=== PATIENT | female | born 1950 | race Caucasian/White ===

== ENCOUNTER → 2016-11-11 | Outpatient (CLI) | payer BC ==
[~2016-11-11] MED LIST: ASPIRIN 81M81 MG/TA2 PO; CALCIUM CARB W/1 TAB PO; DEXILANT60 MG PO; FLONASE NASAL S16 GM NS; HCTZ 25MG TAB25 MG PO; KLOR-CON M2020 MEQ PO; MIRAPEX 0.0.125 MG/T PO; PREMARIN .3MG0.3 MG PO; PRINIVIL10 MG PO; SAVELLA50 MG PO; SINGULAIR 110 MG/TAB PO; TEMOVATE E TP; ZYRTEC 10MG10 MG PO
== END ==
LOC: MC.RAD 08:00
DX: Z12.31 Encounter for screening mammogram for malignant neoplasm of breast (principal)

== ENCOUNTER → 2018-03-16 | Outpatient (CLI) | payer BC | LOC: MC.RAD 02-07 08:40 | DX: Z12.31 Encounter for screening mammogram for malignant neoplasm of breast (principal) ==

== ENCOUNTER → 2019-05-23 | Outpatient (CLI) | payer MEDICARE, BC | LOC: DIA.ED 12:39 | DX: E11.9 Type 2 diabetes mellitus without complications (principal); E78.5 Hyperlipidemia, unspecified; I10 Essential (primary) hypertension; E66.9 Obesity, unspecified | CPT/HCPCS: G0108 ==

== ENCOUNTER → 2021-01-02 | Outpatient (CLI) | payer MEDICARE, BC | LOC: MC.RAD 13:37 | DX: Z12.31 Encounter for screening mammogram for malignant neoplasm of breast (principal) ==

== ENCOUNTER → 2022-01-07 | Outpatient (CLI) | payer MEDICARE, BC | LOC: MC.RAD 09:22 | DX: Z12.31 Encounter for screening mammogram for malignant neoplasm of breast (principal) ==

== ENCOUNTER 2023-06-21 07:18 | Day surgery (SDC) | payer MEDICARE, BC ==
[~2023-06-21] VITALS: Ht 165.1 cm; Wt 101.1 kg
[~2023-06-21 07:18] MED LIST changes: +COZAAR 50MG50 MG/TAB PO; +ELIQUIS 5MG PO; +LEXAPRO 10MG10 MG PO; +LIPITOR20 MG PO; +LOPRESSOR 550 MG/TAB PO; +MAG64 110 MG-181 ECT RC; +OZEMPIC1 MG/0.71 SQ; +PRIL40 PO; +ZOFRAN ODT4 MG PO
[2023-06-21] MEDS ORDERED: RESTASIS0.05% OP (08:09)
[2023-06-21 08:27] LABS: CALCIUM 9.9 mg/dL (8.4-10.2); CREATININE, serum 1.05 mg/dL (0.57-1.11); POTASSIUM 4.1 mmol/L (3.5-4.5)
[2023-06-21 10:00] VITALS: BP 171/86; PULSE 74; TEMP 97.1
[2023-06-21 10:15] VITALS: BP 159/106; PULSE 63
[2023-06-21 10:30] VITALS: BP 122/100; BP 172/100; PULSE 63
[2023-06-21 11:48] VITALS: BP 202/90; PULSE 52; TEMP 97.7
--- NOTE | 2023-06-21 11:50 | NUR ---
0743 PT AMBULATORY TO BAY 2 W/ STEADY GAIT, BREATHING EVEN AND UNLABORED. PT IS ALERT AND ORIENTED. CONSENTS REVIEWED AND SIGNED BY PT.IV ESTABLISHED.LR INFUSING VIA GRAVITY AT [facility]. CALL LIGHT IN REACH. WARM BLANKET PROVIDED.
--- NOTE | 2023-06-21 13:22 | NUR ---
1000: PATIENT FROM ENDO SUITE TO BAY 2. ALERT AND ORIENTED X4. AMBULATED FROM COT TO RECLINER X2 ASSIST. VSS. REPORT RECEIVED. PATIENT DENIES PAIN OR DISCOMFORT. REQUESTING JUICE AND MUFFIN. RESTING IN RECLINER. CALL LIGHT IN REACH. FRIENDKVNG, AT BEDSIDE. 1015: ALERT AND ORIENTED X4. B/P ELEVATED AT 159/106. TOLERATING JUICE AND MUFFIN. DENIES PAIN OR NAUSEA. RESTING IN RECLINER. CALL LIGHT IN REACH. FRIEND AT BEDSIDE. 1023. DR. TAVERA IN TO SPEAK WITH REMY[facility] AT THIS TIME. DR. TAVERA NOTIFIED OF PATIENT PREVIOUS B/P. 1030: ALERT AND ORIENTED X4. CONTINUES TO TOLERATE JUICE AND MUFFIN. DENIES PAIN OR NAUSEA. B/P 172/100. PATRICK CHANG CRNA NOTIFIED AND STATED OKAY TO DISCHARGE. RESTING IN RECLINER. CALL LIGHT IN REACH. 1035: DISCHARGE EDUCATION COMPLETED AT THIS TIME. PATIENT ENCOURAGED TO FOLLOW-UP WITH PCP REGARDING B/P. PATIENT STATED UNDERSTANDING. DISCHARGE PAPERWORK GIVEN TO PATIENT. IV DC'D AT THIS TIME. PATIENT DENIES ASSISTANCE DRESSING. 1050: PATIENT OFF UNIT AT THIS TIME PER WHEELCHAIR. PATIENT DISCHARGED TO HOME WITH FRIEND PER PERSONAL VEHICLE.
== END 2023-06-21 10:50 | disposition home or self-care (01) ==
LOC: SDCO 07:18
PROVIDERS: Nurse Anesthetist, Certified Registered
DX: D12.5 Benign neoplasm of sigmoid colon (principal); D12.2 Benign neoplasm of ascending colon; D12.4 Benign neoplasm of descending colon; K57.30 Diverticulosis of large intestine without perforation or abscess without bleeding; K64.0 First degree hemorrhoids; K29.30 Chronic superficial gastritis without bleeding; G47.33 Obstructive sleep apnea (adult) (pediatric)
CPT/HCPCS: J1920; J2704; J7120